=== PATIENT | female | born 1970 | race Hispanic/Latino ===

== ENCOUNTER 2016-09-17 15:21 | Outpatient (CLI) | payer OTHER ==
--- NOTE | 2016-09-17 15:57 | RAD ---
THREE VIEWS OF THE RIGHT SHOULDER 09/17/16 COMPARISON: None. HISTORY: Acute right shoulder pain. FINDINGS: Three views of the right shoulder shows no evidence of acute fracture or dislocation. No degenerativ e changes are seen. The visualized right thorax is unremarkable. IMPRESSION: No evidence of acute osseous abnormality. POS: [facility]
== END 2016-09-17 15:22 | disposition home or self-care (01) ==
LOC: MADRAD 15:21
PROVIDERS: ATTEND Family Medicine
DX: M25.511 Pain in right shoulder (principal)

== ENCOUNTER 2019-06-07 00:05 | Emergency (ER) | payer BC ==
[2019-06-07 00:31] LABS: Bilirubin Negative (Negative); Blood, Urine Negative (Negative); Clarity Clear (Clear); Glucose, Urine (Dipstick) Negative (Negative); Leukocyte Trace (Negative); Nitrite Negative (Negative); Protein, Urine (Dipstick) Negative (Neg-Trace); Urobilinogen 0.2 mg/dL (Less than 2)
[2019-06-07 00:35] LABS: Bacteria/HPF Rare-Few HPF (None Seen); Mucous/LPF Rare LPF (<2+); RBC/HPF None Seen HPF (0-3)
== END 2019-06-07 00:45 | disposition home or self-care (01) ==
LOC: MADERS 00:05
DX: N39.0 Urinary tract infection, site not specified (principal); K21.9 Gastro-esophageal reflux disease without esophagitis; E03.9 Hypothyroidism, unspecified; Z79.899 Other long term (current) drug therapy
CPT/HCPCS: 81003; 81015; 87086; 99283